=== PATIENT | female | born 1985 | race African-American/Black ===

== ENCOUNTER 2016-11-15 06:47 | Observation (INO) | payer SELFPAY ==
[~2016-11-15] VITALS: Ht 157.5 cm; Wt 97.3 kg
[2016-11-15] VITALS (11 sets, daily range): BP systolic 119–148; BP diastolic 71–95; PULSE 51–72; RESP 14–30; TEMP 98.2–98.8; O2SAT 96–98
[~2016-11-15 06:47] MED LIST: PRED50 PO; ROBIACUDC PO; ZITH250T PO
[2016-11-15] MEDS ORDERED: HYDR-3516 PO (07:16)
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
[2016-11-15] MEDS ORDERED: SODIUM CHLORIDE 0.9% FLUSH 10 ML FLUSH IVF PRN (07:45)
--- NOTE | 2016-11-15 08:10 | RADRPT ---
EXAM DATE/TIME: 11/15/2016 07:56 [facility] COMPARISON: No previous studies available for comparison. INDICATIONS : Syncopal episode with fall. MEDICAL HISTORY : Smoker. SURGICAL HISTORY : None. ENCOUNTER: Initial ACUITY: 2 days PAIN SCORE: 0/10 LOCATION: chest FINDINGS: A single view of the chest demonstrates the lungs to be symmetrically aerated without evidence of mas s, infiltrate or effusion. The cardiomediastinal contours are unremarkable. Osseous structures are intact. CONCLUSION: 1. No acute cardiopulmonary disease. Enmanuel Camarillo MD on November 15, 2016 at 8:07 Board Certified Radiologist. This report was verified electronically.
[2016-11-15 08:14] LABS: AUTOMATED NEUTROPHIL # 6.4 TH/MM3 (1.8-7.7); BASOPHIL # 0.2 TH/MM3 (0-0.2); BASOPHIL % 1.8 % (0.0-2.0); BLOOD, URINE LARGE (NEG); EOSINOPHIL # 0.1 TH/MM3 (0-0.4); EOSINOPHIL % 0.7 % (0.0-4.0); GLUCOSE,URINE NEG (NEG); HEMATOCRIT 39.6 % (35.0-46.0); KETONE, URINE NEG (NEG); LYMPH % 30.3 % (9.0-44.0); LYMPHOCYTE # 3.1 TH/MM3 (1.0-4.8); MEAN CELL VOLUME 85.5 FL (80.0-100.0); MEAN CORPUSCULAR HEMOGLOBIN 27.9 PG (27.0-34.0); MEAN CORPUSCULAR HGB CONC 32.7 % (32.0-36.0); MONO % 4.7 % (0.0-8.0); NEUT % 62.5 % (16.0-70.0); NITRITE,URINE NEG (NEG); PLATELET COUNT 294 TH/MM3 (150-450); RED BLOOD COUNT 4.63 MIL/MM3 (4.00-5.30); RED CELL DISTRIBUTION WIDTH 14.4 % (11.6-17.2); WHITE BLOOD COUNT 10.3 TH/MM3 (4.0-11.0)
[2016-11-15 08:21] LABS: HEMO FLAGS DIFF FINAL
[2016-11-15 08:22] LABS: CHLORIDE 109 MEQ/L (98-107); POTASSIUM 3.9 MEQ/L (3.5-5.1); SODIUM (NA) 143 MEQ/L (136-145)
[2016-11-15 08:25] LABS: ANION GAP 9 MEQ/L (5-15); BICARBONATE 24.8 MEQ/L (21.0-32.0); BLOOD UREA NITROGEN 11 MG/DL (7-18); PROTHROMBIN TIME - PATIENT 10.7 SEC (9.8-11.6)
[2016-11-15 08:27] LABS: METHOD OF COLLECTION CATH; URINE COLOR YELLOW (YELLW/STRAW)
[2016-11-15 08:28] LABS: GLOMERULAR FILTRATION RATE 78 ML/MIN (>89); MUCUS URINE FEW /lpf (OCC); SQUAMOUS EPITHELIAL CELL URINE 0-5 /hpf (0-5); WBC, URINE 0-2 /hpf (0-5)
[2016-11-15 08:29] LABS: COMMENT (UR) CULT NOT INDICATED; CULTURE IF INDICATED CULT NOT INDICATED
[2016-11-15 08:32] LABS: CREATINE KINASE 147 U/L (26-192)
--- NOTE | 2016-11-15 09:11 | RADRPT ---
EXAM DATE/TIME: 11/15/2016 08:21 [facility] COMPARISON: No previous studies available for comparison. INDICATIONS : Evaluate for cerebrovascular accident. Syncope. RADIATION DOSE: 66.20 CTDIvol (mGy) MEDICAL HISTORY : None SURGICAL HISTORY : None. ENCOUNTER: Initial ACUITY: 1 day PAIN SCALE: 7/10 LOCATION: Bilateral cranial TECHNIQUE: Multiple contiguous axial images were obtained of the head. Using automated exposure control and adj ustment of the mA and/or kV according to patient size, radiation dose was kept as low as reasonably a chievable to obtain optimal diagnostic quality images. DICOM format image data is available electro nically for review and comparison. FINDINGS: CEREBRUM: The ventricles are normal for age. No evidence of midline shift, mass lesion, hemorrhage or acute in farction. No extra-axial fluid collections are seen. POSTERIOR FOSSA: The cerebellum and brainstem are intact. The 4th ventricle is midline. The cerebellopontine angle i s unremarkable. EXTRACRANIAL: The visualized portion of the orbits is intact. SKULL: The calvaria is intact. No evidence of skull fracture. CONCLUSION: No acute disease. Reji Miller MD on November 15, 2016 at 9:07 Board Certified Radiologist. This report was verified electronically.
[2016-11-15] MEDS ORDERED: SODIUM CHLOR 0.9% 1000 ML INJ 1,000 ML IV SCH (10:17)
[2016-11-15] MEDS ORDERED: LACTULOSE SYRUP 20 GM/30 ML CUP PO PRN (10:30)
[2016-11-15] MEDS ORDERED: MAGNESIUM HYDROXIDE SUSP 30 ML CUP PO PRN (10:30)
[2016-11-15] MEDS ORDERED: BISACODYL 10 MG SUPP RECTAL PRN (10:30)
[2016-11-15] MEDS ORDERED: SODIUM CHLORIDE 0.9% FLUSH 10 ML FLUSH IV FLUSH PRN (10:30)
[2016-11-15] MEDS ORDERED: SENNOSIDES 8.6 MG TAB PO PRN (10:30)
--- NOTE | 2016-11-15 12:32 | HHI.HP ---
[facility] Service [facility] Hospitalists Primary Care Physician No Primary Care Physician Admission Diagnosis syncope, abnormal EKG Diagnoses: Chief Complaint: Patient had a syncopal episode and chest discomfort Travel History International Travel<30 Days: No Contact w/Intl Traveler <30 Da: No Traveled to Known Affected Are: No History of Present Illness This patient is a 31-year-old female with a BMI of 39.4. She does work 3 jobs and has not been taking good care of herself i.e. has not been eating and drinking fluids appropriately per her own report. Yesterday she had some dizziness and an episode of chest discomfort. She was at work and was short of breath and felt her chest was tight and passed almost passed out. She did go home and get some rest and because she was off today came to the emergency room for further evaluation when she still felt dizzy. Patient says that she has never felt this before and she has no medical history of cardiac events or mental issues. At this point patient has been evaluated for further evaluation of these issues. Her EKG was abnormal and rhythm however there is no evidence of ischemic events. Review of Systems Constitutional: DENIES: Diaphoretic episodes, Fatigue, Fever, Weight gain, Weight loss, Chills, Dizziness, Change in appetite, Night Sweats Endocrine: DENIES: Abnorml menstrual pattern, Heat/cold intolerance, Polydipsia , Polyuria, Polyphagia Eyes: DENIES: Blurred vision, Diplopia, Eye inflammation, Eye pain, Vision loss , Photosensitivity, Double Vision Respiratory: DENIES: Apneas, Cough, Snoring, Wheezing, Hemoptysis, Sputum production, Shortness of breath Cardiovascular: COMPLAINS OF: Syncope, DENIES: Chest pain, Palpitations, Dyspnea on Exertion, PND, Lower Extremity Edema, Orthopnea, Claudication Gastrointestinal: DENIES: Abdominal pain, Black stools, Bloody stools, Constipation, Diarrhea, Nausea, Vomiting, Difficulty Swallowing, Anorexia Genitourinary: DENIES: Abnormal vaginal bleeding, Dysmenorrhea, Dyspareunia, Sexual dysfunction, Urinary frequency, Urinary incontinence, Urgency, Hematuria , Dysuria, Nocturia, Vaginal discharge Musculoskeletal: DENIES: Joint pain, Muscle aches, Stiffness, Joint Swelling, Back pain, Neck pain Immunologic/allergic: DENIES: Eczema, Urticaria Neurologic: DENIES: Abnormal gait, Headache, Localized weakness, Paresthesias, Seizures, Speech Problems, Tremor, Poor Balance Psychiatric: DENIES: Anxiety, Confusion, Mood changes, Depression, Hallucinations, Agitation, Suicidal Ideation, Homicidal Ideation, Delusions Past Family Social History Past Medical History Denies Past Surgical History Denies Reported Medications Denies Allergies: Coded Allergies: No Known Allergies (Verified , 11/15/16) Active Ordered Medications Reviewed in the medical record Family History Cousin at 22 after having a pacemaker put in and he was also an athlete Social History Marijuana daily, works 3 jobs, lives with her girlfriend, no recent travel, no tobacco, alcohol daily Physical Exam Vital Signs Vital Signs Date Time Temp Pulse Resp B/P Pulse Ox O2 Delivery O2 Flow Rate FiO2 11/15/16 12:00 54 17 123/75 98 11/15/16 10:55 52 11/15/16 09:55 98.8 51 21 119/76 96 11/15/16 09:55 51 11/15/16 09:37 55 16 148/78 98 Room Air 11/15/16 08:08 52 16 124/74 59 16 137/95 63 16 139/95 11/15/16 07:53 98 Room Air 11/15/16 06:51 98.6 72 14 122/88 98 Physical Exam GENERAL: This is a well-nourished, well-developed patient, in no apparent distress. SKIN: No rashes, ecchymoses or lesions. Cool and dry. HEAD: Atraumatic. Normocephalic. No temporal or scalp tenderness. EYES: Pupils equal round and reactive. Extraocular motions intact. No scleral icterus. No injection or drainage. ENT: Nose without bleeding, purulent drainage or septal hematoma. Throat without erythema, tonsillar hypertrophy or exudate. Uvula midline. Airway patent. NECK: Trachea midline. No JVD or lymphadenopathy. Supple, nontender, no meningeal signs. CARDIOVASCULAR: Sinus bradycardia without murmurs, gallops, or rubs. RESPIRATORY: Clear to auscultation. Breath sounds equal bilaterally. No wheezes , rales, or rhonchi. GASTROINTESTINAL: Abdomen soft, non-tender, nondistended. No hepato-splenomegaly , or palpable masses. No guarding. MUSCULOSKELETAL: Extremities without clubbing, cyanosis, or edema. No joint tenderness, effusion, or edema noted. No calf tenderness. Negative Homans sign bilaterally. NEUROLOGICAL: Awake and alert. Cranial nerves II through XII intact. Motor and sensory grossly within normal limits. Five out of 5 muscle strength in all muscle groups. Normal speech. Laboratory Laboratory Tests Test 11/15/16 08:06 White Blood Count 10.3 Red Blood Count 4.63 Hemoglobin 12.9 Hematocrit 39.6 Mean Corpuscular Volume 85.5 Mean Corpuscular Hemoglobin 27.9 Mean Corpuscular Hemoglobin 32.7 Concent Red Cell Distribution Width 14.4 Platelet Count 294 Mean Platelet Volume 8.9 Neutrophils (%) (Auto) 62.5 Lymphocytes (%) (Auto) 30.3 Monocytes (%) (Auto) 4.7 Eosinophils (%) (Auto) 0.7 Basophils (%) (Auto) 1.8 Neutrophils # (Auto) 6.4 Lymphocytes # (Auto) 3.1 Monocytes # (Auto) 0.5 Eosinophils # (Auto) 0.1 Basophils # (Auto) 0.2 CBC Comment DIFF FINAL Differential Comment Prothrombin Time 10.7 Prothromb Time International 1.0 Ratio Urine Collection Type CATH Urine Color YELLOW Urine Turbidity CLEAR Urine pH 5.0 Urine Specific Partridge 1.028 Urine Protein NEG Urine Glucose (UA) NEG Urine Ketones NEG Urine Occult Blood LARGE Urine Nitrite NEG Urine Bilirubin NEG Urine Leukocyte Esterase NEG Urine RBC 25-49 Urine WBC 0-2 Urine Squamous Epithelial 0-5 Cells Urine Mucus FEW Microscopic Urinalysis Comment CULT NOT INDICATED Urine Collection Time 08:06 Sodium Level 143 Potassium Level 3.9 Chloride Level 109 Carbon Dioxide Level 24.8 Anion Gap 9 Blood Urea Nitrogen 11 Creatinine 1.00 Estimat Glomerular Filtration 78 Rate Random Glucose 89 Calcium Level 8.5 Total Creatine Kinase 147 Troponin I LESS THAN 0.02 Result Diagram: 11/15/1680511/15/16805 Imaging Last Impressions Head CT 11/15/16741 Signed Impressions: Service Date/Time: October 08:21 - CONCLUSION: No acute disease. Reji Miller MD Chest X-Ray 11/15/16 0742 Signed Impressions: Service Date/Time: October 07:56 - CONCLUSION: 1. No acute cardiopulmonary disease. Enmanuel Camarillo MD Assessment and Plan Problem List: (1) Syncope ICD Code: R55 Status: Acute Plan: Likely multifactorial. Patient with syncopal symptoms associated with excessive exertion and seemingly resolved. Patient with family history of cardiomyopathy. Continue with echo, telemetry, hydrate patient and follow cardiac enzymes (2) Abnormal EKG ICD Code: R94.31 Status: Acute Plan: No baseline EKG available. On my read there is no sign of ischemic injury pattern although it is atypical. Patient with bradycardia which is likely normal for her. Continue with repeat EKG and echocardiogram Assessment and Plan Abnormal EKG with presyncopal symptoms. We'll continue to evaluate for overt cardiac pathology while treating for dehydration. Likely discharge home later Code Status Full code Discussed Condition With Patient, MONA Zurita Problem Qualifiers (1) Syncope: Qualified Code: R55 - Syncope, unspecified syncope type Mary Anne Wang MD Nov 15, 2016 12:32
--- NOTE | 2016-11-15 15:36 | EKG ---
Date Performed: 11/15/2016 Time Performed: 07:52:32 PTAGE: 31 years EKG: SINUS BRADYCARDIA WITH SINUS ARRHYTHMIA BORDERLINE ECG NO PREVIOUS TRACING DOCTOR: Sebastian Kim Interpretating Date/Time 11/15/2016 15:34:34
--- NOTE | 2016-11-15 18:17 | ECHRPT ---
Indication: Chest pain, unspecified CONCLUSIONS The left ventricular systolic function is hyperdynamic with an estimated ejection fraction in the ra nge of 65- 70%. Left ventricular diastolic function parameters are normal. Trace mitral valve regurgitation. Probably trileaflet aortic valve, but cannot rule out bicuspid aortic valve. Trivial aortic insufficiency. No aortic valve stenosis. There is trace tricuspid valve regurgitation. BP: 123 / 75 HR: 90 Rhythm: Sinus MEASUREMENTS (Male / Female) Normal Values Technical Quality:Fair 2D ECHO LV Diastolic Diameter PLAX 5.1 cm 4.2 - 5.9 / 3.9 - 5.3 cm LV Systolic Diameter PLAX 3.4 cm IVS Diastolic Thickness 0.7 cm 0.6 - 1.0 / 0.6 - 0.9 cm LVPW Diastolic Thickness 0.8 cm 0.6 - 1.0 / 0.6 - 0.9 cm LV Relative Wall Thickness 0.3 LVOT Diameter 1.6 cm Aortic Root Diameter 2.8 cm LA Systolic Diameter LX 3.2 cm 3.0 - 4.0 / 2.7 - 3.8 cm M-MODE AV Cusp Separation MM 1.8 cm DOPPLER AV Peak Velocity 150.0 cm/s AV Peak Gradient 9.0 mmHg AV Mean Gradient 6.0 mmHg AV Velocity Time Integral 32.7 cm LVOT Peak Velocity 91.7 cm/s LVOT Peak Gradient 3.4 mmHg LVOT Velocity Time Integral 20.0 cm LVOT Cardiac Index 1709.7 cm/minm AV Area Cont Eq vti 1.2 cm AV Area Cont Eq pk 1.2 cm Mitral E Point Velocity 81.9 cm/s Mitral A Point Velocity 28.1 cm/s Mitral E to A Ratio 2.9 LV E' Lateral Velocity 14.0 cm/s Mitral E to LV E' Lateral Ratio 5.8 LV E' Septal Velocity 11.8 cm/s Mitral E to LV E' Septal Ratio 6.9 TR Peak Velocity 229.0 cm/s TR Peak Gradient 21.0 mmHg PV Peak Velocity 64.7 cm/s PV Peak Gradient 1.7 mmHg FINDINGS LEFT VENTRICLE Normal left ventricular size. Wall thickness is normal. The left ventricular systolic function is hyperdynamic with an estimated ejection fraction in the ra nge of 65- 70%. No regional wall motion abnormalities are present. Left ventricular diastolic function parameters are normal. RIGHT VENTRICLE Normal right ventricular size and systolic function. LEFT ATRIUM The left atrial size is normal. RIGHT ATRIUM The right atrial size is normal. ATRIAL SEPTUM The interatrial septum not well visualized. AORTA The aortic root and proximal ascending aorta are normal in size on limited imaging. MITRAL VALVE Structurally normal mitral valve. Trace mitral valve regurgitation. AORTIC VALVE Probably trileaflet aortic valve, but cannot rule out bicuspid aortic valve. Trivial aortic insufficiency.no aortic valve stenosis. TRICUSPID VALVE Structurally normal tricuspid valve. There is trace tricuspid valve regurgitation. Normal estimated pulmonary pressures. PULMONARY VALVE No pulmonary valve regurgitation or stenosis. VESSELS The inferior vena cava is normal in size. There is greater than 50% respiratory change in dimension of the inferior vena cava (normal). PERICARDIUM No pericardial effusion. Layo Freire DO (Electronically Signed) Final Date:15 November 2016 18:16
--- NOTE | 2016-11-15 19:50 | HHI.DCPOC ---
Discharge Care Plan Diagnosis: (1) Syncope Goals to Promote Your Health * To prevent worsening of your condition and complications * To maintain your health at the optimal level Directions to Meet Your Goals Take your medications as prescribed Follow your dietary instruction Follow activity as directed Keep your appointments as scheduled Take your immunizations and boosters as scheduled If your symptoms worsen call your PCP, if no PCP go to Urgent Care Center or Emergency Room Smoking is Dangerous to Your Health. Avoid second hand smoke Call the 24-hour hour crisis hotline for domestic abuse at Mary Anne Wang MD Nov 15, 2016 19:50
[2016-11-15] MEDS ORDERED: DOCUSATE SODIUM 50 MG/SENNA 8.6 MG TAB PO SCH (21:00)
[2016-11-15] MEDS ORDERED: SODIUM CHLORIDE 0.9% FLUSH 10 ML FLUSH IV FLUSH SCH (21:00)
== END 2016-11-15 20:10 | disposition home or self-care (01) ==
LOC: PHED 06:47 → PHEDA 09:06 → PHICU 10:00
PROVIDERS: ADMIT Hospitalist; ATTEND Hospitalist
DX: R55 Syncope and collapse (principal); R94.31 Abnormal electrocardiogram [ECG] [EKG]; R00.1 Bradycardia, unspecified; I49.8 Other specified cardiac arrhythmias; R07.9 Chest pain, unspecified; R42 Dizziness and giddiness; R06.02 Shortness of breath; F12.90 Cannabis use, unspecified, uncomplicated; M54.9 Dorsalgia, unspecified; G89.29 Other chronic pain; F17.200 Nicotine dependence, unspecified, uncomplicated; W19.XXXA Unspecified fall, initial encounter
CPT/HCPCS: 70450; 71010; 80048; 81001; 82550; 84484; 85025; 85610; 93005; 93306; 99285; G0378; J7030

== ENCOUNTER 2017-02-20 00:36 | Emergency (ER) | payer SELFPAY ==
[~2017-02-20] VITALS: Ht 154.9 cm; Wt 98.0 kg
[~2017-02-20 00:36] MED LIST changes: +HYDR-3516 PO; -PRED50 PO; -ROBIACUDC PO; -ZITH250T PO
[2017-02-20 00:38] VITALS: BP 140/93; PULSE 63; RESP 16; TEMP 99.3; O2SAT 99
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
[2017-02-20] MEDS ORDERED: LIDOCAINE HCL 1% 50 ML VIAL INFIL ONE (01:30)
== END 2017-02-20 03:24 | disposition home or self-care (01) ==
LOC: NEPD 00:36
DX: L60.0 Ingrowing nail (principal)
CPT/HCPCS: 11765